=== PATIENT | female | born 1960 | race Caucasian/White ===

== ENCOUNTER 2017-06-07 15:57 | Emergency (ER) | payer MEDICAID ==
[2017-06-07 16:21] VITALS: BP 95/64; PULSE 100; RESP 18; TEMP 100.4; O2SAT 97
--- NOTE | 2017-06-07 17:51 | C.PDOC ---
History Of Present Illness 57yo female, presents to ED with complaints of cough, fever and bodyaches for the past couple days. She denies taking any medications for her symptoms. Patient denies any chest pain, shortness of breath. Time Seen by Provider: 06/07/17 17:35 Chief Complaint (Nursing): Flu-like Symptoms History Per: Patient History/Exam Limitations: no limitations Onset/Duration Of Symptoms: Days Current Symptoms Are (Timing): Still Present Location Of Pain: Diffuse Myalgias, Headache Associated Symptoms: Fever, Cough, Myalgias Additional History Per: Patient Past Medical History Reviewed: Historical Data, Nursing Documentation, Vital Signs Vital Signs: Last Vital Signs Temp 100.4 F H 06/07/17 16:18 Pulse 100 H 06/07/17 16:18 Resp 18 06/07/17 16:18 BP 95/64 L 06/07/17 16:18 Pulse Ox 97 06/07/17 17:53 - Medical History PMH: Osteoporosis Surgical History: Tonsillectomy Family History: States: No Known Family Hx - Social History Hx Tobacco Use: No Hx Alcohol Use: No Hx Substance Use: No - Immunization History Hx Tetanus Toxoid Vaccination: No (patient is a non-smoker) Hx Influenza Vaccination: No Hx Pneumococcal Vaccination: No Review Of Systems Constitutional: Positive for: Fever, Malaise Eyes: Negative for: Pain, Vision Change, Redness ENT: Positive for: Nose Congestion. Negative for: Throat Pain Cardiovascular: Negative for: Chest Pain Respiratory: Positive for: Cough. Negative for: Shortness of Breath Gastrointestinal: Negative for: Vomiting, Abdominal Pain, Diarrhea Genitourinary: Negative for: Dysuria Skin: Negative for: Rash Neurological: Negative for: Headache Physical Exam - Physical Exam Appears: Non-toxic, No Acute Distress Skin: Normal Color, Warm, Dry, No Rash Head: Atraumatic, Normacephalic Eye(s): bilateral: Normal Inspection, PERRL, EOMI Ear(s): Bilateral: Normal (no erythema) Nose: Normal Oral Mucosa: Moist Throat: Normal, No Erythema, No Exudate, No Drooling, No Mass Neck: Normal ROM, Supple Chest: Symmetrical Cardiovascular: Rhythm Regular, No Murmur Respiratory: Normal Breath Sounds, No Rales, No Rhonchi, No Wheezing Extremity: Bilateral: Atraumatic, Normal Color And Temperature, Normal ROM Neurological/Psych: Oriented x3, Normal Speech Gait: Steady ED Course And Treatment O2 Sat by Pulse Oximetry: 97 (RA) Pulse Ox Interpretation: Normal Medical Decision Making Medical Decision Making: Impression: Flu like symptoms Plan: -- Tylenol 375 mg PO -- Rapid Flu Time: 1735 Serology reports positive for Flu B Re-eval: Patient informed she has the flu and explain the course and symptoms of Influenza. Rx for Tamiflu given. Recommend supportive treatment and instruct to take Tylenol or Motrin alternating every 4-6 hours for Fever 100.4F or higher. Rest and drink plenty of fluids to prevent dehydration. Patient feels comfortable going home and will be discharged. Patient given follow up instructions. Instructed to return to ER if symptoms worsen or new symptoms arise. Disposition Counseled Patient/Family Regarding: Diagnosis, Need For Followup, Rx Given - Disposition [facility]errals: [facility] [Outside] [facility]Outside] [facility] Disposition: HOME/ ROUTINE Disposition Time: 17:50 Condition: GOOD Additional Instructions: You have Influenza Take Tamiflu twice a day for 5 days Prescription sent to [facility] pharmacy Take Tylenol or Motrin alternating every 4-6 hours for Fever 100.4F or higher. 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 - Scribe Statement The provider has reviewed the documentation as recorded by the Scribe (China Rosenberg) Provider Scribe Attestation: All medical record entries made by the Scribe were at my direction and personally dictated by me. I have reviewed the chart and agree that the record accurately reflects my personal performance of the history, physical exam, medical decision making, and the department course for this patient. I have also personally directed, reviewed, and agree with the discharge instructions and disposition.
== END 2017-06-07 18:20 | disposition home or self-care (01) ==
LOC: C.ER 15:57
DX: J11.1 Influenza due to unidentified influenza virus with other respiratory manifestations (principal)

== ENCOUNTER 2017-09-21 20:13 | Emergency (ER) | payer SELFPAY ==
[2017-09-21 20:51] VITALS: BP 118/55; PULSE 92; RESP 18; TEMP 98.4; O2SAT 99
[2017-09-21] MEDS ORDERED: Albuterol 0.083% Inhal Sol (2.5 mg/3 mL) UD ONE (21:44)
[2017-09-21] MEDS: Albuterol 0.083% Inhal Sol (2.5 mg/3 mL) UD INH SCH ×2 (21:45→21:53)
[2017-09-21 22:30] LABS: SQUAMOUS EPITHIAL 2 /hpf (0-5); URINE BACTERIA FEW (<OCC); URINE BILIRUBIN NEGATIVE (NEGATIVE); URINE BLOOD 2+ (NEGATIVE); URINE CLARITY Hazy (Clear); URINE COLOR Yellow (YELLOW); URINE GLUCOSE (UA) NORMAL (Normal); URINE LEUKOCYTE ESTERASE 1+ Leu/uL (Negative); URINE PROTEIN NEGATIVE (NEGATIVE); URINE UROBILINOGEN NORMAL mg/dL (0.2-1.0)
--- NOTE | 2017-09-21 23:13 | C.PDOC ---
History Of Present Illness 57 year old female with a history of tingling sensation post-voiding presents to the emergency department with complaints of intermittent cough for the past week. Patient reports she has been managing her symptoms with OTC meds, and states that upon usage of the medications today she felt tightness in her chest. Patient also reports that she is using an inhaler at home with no relief. Patient denies fever. Time Seen by Provider: 09/21/17 21:08 Chief Complaint (Nursing): Cough, Cold, Congestion History Per: Patient History/Exam Limitations: no limitations Onset/Duration Of Symptoms: Days (7) Current Symptoms Are (Timing): Still Present Associated Symptoms: Cough, Other (shortness of breath, chest tightness). denies: Fever Past Medical History Reviewed: Historical Data, Nursing Documentation, Vital Signs Vital Signs: Last Vital Signs Temp 98.4 F 09/21/17 20:47 Pulse 92 H 09/21/17 20:47 Resp 18 09/21/17 20:47 BP 118/55 L 09/21/17 20:47 Pulse Ox 99 09/21/17 23:17 - Medical History PMH: Osteoporosis Surgical History: Tonsillectomy Family History: States: No Known Family Hx - Social History Hx Tobacco Use: No Hx Alcohol Use: No Hx Substance Use: No - Immunization History Hx Tetanus Toxoid Vaccination: No (patient is a non-smoker) Hx Influenza Vaccination: Yes Hx Pneumococcal Vaccination: No Review Of Systems Constitutional: Negative for: Fever Respiratory: Positive for: Cough, Shortness of Breath, Other (chest tightness) Physical Exam - Physical Exam Appears: Non-toxic, No Acute Distress Respiratory: Decreased Breath Sounds, Wheezing (minimal expiratory wheezing) ED Course And Treatment O2 Sat by Pulse Oximetry: 99 (RA) - Radiology CXR: Interpreted by Me CXR Interpretation: No: Infiltrates Progress Note: Plan: CXR Two Views. Albuterol 2.5mg INH. Prednisone 40mg PO. Nebulizer Treatment. Urinalysis Disposition Counseled Patient/Family Regarding: Diagnosis, Need For Followup, Rx Given - Disposition Disposition: HOME/ ROUTINE Disposition Time: 23:11 Condition: STABLE Additional Instructions: Please follow up with PMD Increase PO fluids Take all meds prescribed Return to ER if worse Prescriptions: Amoxicillin 500 mg PO TID #21 tab Benzonatate [Tessalon Perles] 100 mg PO TID #20 sgl predniSONE [Prednisone] 40 mg PO DAILY #10 tab Instructions: Acute Bronchitis, Adult (DC) Forms: [employer] (Afghan) - Clinical Impression Clinical Impression: Bronchitis, Urinary tract infection - 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 - Scribe Statement The provider has reviewed the documentation as recorded by the Scribe (Reji Monroe) All medical record entries made by the Scribe were at my direction and personally dictated by me. I have reviewed the chart and agree that the record accurately reflects my personal performance of the history, physical exam, medical decision making, and the department course for this patient. I have also personally directed, reviewed, and agree with the discharge instructions and disposition.
--- NOTE | 2017-09-22 09:06 | RAD ---
HISTORY: cough, sob COMPARISON: No prior. TECHNIQUE: Chest PA and lateral FINDINGS: LUNGS: No active pulmonary disease. PLEURA: No significant pleural effusion identified. No pneumothorax apparent. CARDIOVASCULAR: Normal. OSSEOUS STRUCTURES: No significant abnormalities. VISUALIZED UPPER ABDOMEN: Normal. OTHER FINDINGS: Right axillary surgical clips. IMPRESSION: No active disease.
== END 2017-09-21 23:21 | disposition home or self-care (01) ==
LOC: SUPCPDRO 20:13 → C.ER 20:13
DX: J40 Bronchitis, not specified as acute or chronic (principal); N39.0 Urinary tract infection, site not specified